=== PATIENT | male | born 1985 ===

== ENCOUNTER → 2019-11-17 | Outpatient (CLI) | payer OTHER ==
[~2019-11-17] MED LIST: GABA800T PO; MELO15TA6 PO; METH-38 PO
--- NOTE | 2019-11-17 10:49 | PAIN ---
DATE OF SERVICE: 11/17/2019 INITIAL CONSULTATION FOR PAIN CLINIC CHIEF COMPLAINT: Low back and left lower extremity pain. HISTORY OF PRESENT ILLNESS: This is a 34-year-old male who presents with history of pain in the low back, left lower extremity since about 04/2019 or 05/2019. The patient reports it started suddenly. He was playing soccer and then had some significant pain in the leg on the left side, better after about a day and then he was doing some weightlifting with leg presses and the next day it was excruciating pain in the posterior gluteus, posterolateral thigh, lateral anterior thigh, anteromedial thigh and into the lower leg and ankle. The patient reports it is generally just now into the side of the leg, anterior thigh into the left ankle rarely, but mostly up above the knee at this point. The patient reports no new motor or sensory deficits, no new bowel or bladder incontinence. The patient reports it is a stabbing, shooting pain, intermittent in intensity, worse with walking, standing, changing positions, better with sitting or lying down, generally does not awaken him from sleep at night. It does affect his ability to walk; however, significant fatigue in the left lower extremity. The patient rates his disability rating from 0-10, 10 being the worst, is a 7 with family home responsibilities and social activity, 10 with recreation, 9 with occupation, 3 with self-care activities. The patient has tried Neurontin, Mobic, Robaxin and also Vicodin, none of which have really decreased the pain significantly. The Neurontin and Mobic seems to help mildly. The patient has had physical therapy from April, May until August which helped the pain decrease in his back, but not in the leg. The patient reports he is exercising currently, doing stretching mostly which he has learnt from Physical Therapy, but it is not decreasing the pain significantly. PAST MEDICAL HISTORY: Significant for gastroesophageal reflux. Otherwise, the patient has been in fairly good health. PREVIOUS SURGERY: Include right shoulder surgery in 2009, hernia repair in 1986, eye surgery in 2014 and umbilical hernia in 2018. CURRENT MEDICATIONS: Include meloxicam, gabapentin and Robaxin. ALLERGIES: THE PATIENT IS ALLERGIC TO VICODIN. FAMILY HISTORY: Significant for no major medical problems or conditions that he lists. SOCIAL HISTORY: The patient does not drink alcohol, does not smoke, does not use any illegal, illicit or recreational drugs. He is . He is currently active and is in custody. REVIEW OF SYSTEMS: The patient's review of systems is positive for those items mentioned in history of present illness. All systems reviewed and otherwise negative. It is complete, full and well documented on the patient's chart. PHYSICAL EXAMINATION: VITAL SIGNS: The patient's blood pressure is 123/90, pulse 87, respirations 18, temperature 97.8 degrees Fahrenheit, height is 5 feet 8 inches, weight is 207 pounds. GENERAL: The patient is awake, alert, oriented, appropriate and very pleasant demeanor. HEENT: Head shows normocephalic, atraumatic. Extraocular movements are intact and symmetrical. Oral cavity shows mucous membranes moist and pink. Dentition is intact. NECK: Shows anterior throat supple without palpable lymphadenopathy noted. Swallow reflex symmetrical. CHEST: Normal on inspection. Breath sounds clear to auscultation bilaterally. HEART: Shows S1, S2 clear. No murmurs auscultated. ABDOMEN: Soft, nontender, nondistended. No palpable organomegaly is noted. No rebound or guarding demonstrated. BACK: Shows spine grossly in the midline. Normal appearing cervical lordotic curvature, thoracic kyphotic curvature and lumbar lordotic curvature. Lumbar paraspinous muscle shows symmetrical on inspection, on palpation shows some moderate tenderness diffusely bilaterally, but only diffusely without significant radiation. The patient has good rotational motion of lumbar spine, both laterally as well as extension and flexion without significant difficulty. No tenderness over the sacrum and sacroiliac regions or the spinous processes with direct palpation. EXTREMITIES: The patient's lower extremities show deep tendon reflexes 2+ in the patellar, 1+ tendo-calcaneus tendons. Motor exam is strong with 5/5 dorsiflexion, extension on the right and 4/5 on the left. Quadriceps and hamstring flexion likewise is 4/5 left, 5/5 on the right. Peripheral pulses are 1+ posterior tibia. No peripheral edema is noted bilaterally. The patient's straight leg raise noted to be mildly positive on the left at about 40 degrees, decreased with knee flexion, right side is negative. Gaenslen's and Jun's maneuvers are negative bilaterally. Lower extremities are warm and dry to touch, equal in color and appearance. The patient is able to stand, stand on his toes without significant difficulty or loss of balance, does walk with an antalgic gait favoring the left lower extremity, but again not using any assistive devices to ambulate. SKIN: Shows warm and dry, good turgor. No edema. No sores, rashes or bruising throughout. IMPRESSION: 1. This is a 34-year-old male with approximately 7-month history of low back pain, left lower extremity pain in a radicular fashion. 2. MRI scan of lumbar spine as noted. 3. Previous physical therapy without significant improvement. PLAN: Options were discussed with the patient including conservative medical management, continued therapies as well as interventional techniques. He would like to pursue interventional techniques. We discussed a lumbar epidural steroid injection using description as well as anatomical models to describe the procedure. The patient will wait for preauthorization with his insurance provider, have him return once authorization is obtained. We will plan on lumbar epidural steroid injection at that time for his clinical left L4-L5 radiculopathy with translaminar approach at the L4-L5 level. LAURO HAYNES MD DR: ERMA/michelle JOB#: [id number] / [id number]
== END | disposition home or self-care (01) ==
LOC: PNCL 07:22 → EEVIPCON 08:00
PROVIDERS: ATTEND Anesthesiology
DX: M54.5 Low back pain (principal); M79.605 Pain in left leg; K21.9 Gastro-esophageal reflux disease without esophagitis; Z88.8 Allergy status to other drugs, medicaments and biological substances
CPT/HCPCS: G0463

== ENCOUNTER → 2020-08-16 | Outpatient (CLI) | payer OTHER ==
[~2020-08-16] MED LIST changes: +GABA600T PO; +GABA600T7 PO; +IOHEXOL 180 MG/ML 10 ML VIAL. ONE; +OMEG1CAP27 PO; +OMEP20TA63 PO; +PIRO20CA PO; +elavil; +methylPREDNISolone ACETATE 40 MG/ML VIAL. ONE; +methylPREDNISolone ACETATE 80 MG/ML VIAL. ONE
--- NOTE | 2020-08-16 08:24 | PDOC ---
Progress Note - Pain Clinic Date of Service: DOS: DATE: 08/16/20 TIME: 08:21 Diagnosis: Dx: Lumbar radiculopathy with lumbar degenerative disc disease History or Present Illness: HPI: 35-year-old male returns follow-up status post initial evaluation last seen November 17, 2019 with pain low back and left lower extremity patient returns now reports this is unchanged is not any treatment for it and reports the pain is still radiating from the low back into the posterior gluteus posterior lateral thigh lateral anterior thigh anteromedial thigh and posterior calf on the left side as it was to the level of the ankle. Patient describes as aching sharp and dull alternating shooting pain left leg stabbing in the back can be constant and radiating can be severe as well. Patient reports awakening from sleep about once a night he is taking some medication for sleep which helps as well. Patient reports no new motor or sensory deficits no new bowel or bladder incontinence rates his pain is a 7 on scale 10 is worse over the past week 5 on average 4 to sleep and is a 5 today. Patient's old MRI scan was reviewed with him today as well. Physical Exam: VS: Blood pressure is 143/99 pulse 88 respirations 16 temperature 97.7 this Fahrenheit weight is 222 pounds PE: PHYSICAL EXAMINATION: GENERAL: The patient is awake, alert, oriented, appropriate, very pleasant dem eanor HEENT: Shows normocephalic, atraumatic. Extraocular movements are intact and symmetrical. Oral cavity: Mucous membranes moist and pink. Dentition is intact. NECK: Shows anterior throat supple without palpable lymphadenopathy noted. Swallow reflex symmetrical. CHEST: Shows normal on inspection. Breath sounds are clear bilaterally, no rales rhonchi wheezes auscultated. HEART: Shows S1, S2 clear. No murmurs auscultated. ABDOMEN: Soft, nontender, nondistended. No palpable organomegaly is noted. No rebound or guarding demonstrated. BACK: Shows spine grossly in the midline. Normal-appearing cervical lordotic curvature. There is slightly increased thoracic kyphosis, some minor flattening of the lumbar lordotic curvature. Lumbar paraspinous muscles show symmetrical on inspection, on palpation shows some moderate tenderness diffusely throughout the upper, middle and lower distribution of the paraspinous muscles bilaterally, but without specific trigger points, without radiation of pain. The patient has good rotational motion of the lumbar spine, both laterally as well as extension and flexion without significant difficulty. No tenderness over the spinous processes, sacrum or sacroiliac regions. EXTREMITIES: Lower extremities show deep tendon reflexes 2+ in the patellar and tendo calcaneus tendons. Motor exam is 5 on a scale of 5 with right dorsiflexion, extension, quadriceps and hamstring flexion and 4/5 on the left. Peripheral pulses are 1+ posterior tibial. No peripheral edema is noted bilaterally. Lower extremities are warm and dry to touch, equal in color and appearance. . SKIN: Shows warm and dry, good turgor. No edema. No sores, rashes or bruising throughout. Procedure: Procedure: Options were discussed with the patient. Patient chart was reviewed his his current medication regimen updated current review of systems updated today as well. We will proceed with a lumbar epidural steroid injection today with fluoroscopic guidance. Risks were discussed including but not limited to: Bleeding, infection, possibility of epidural hematoma and subsequent neurological compromise, dural puncture, headaches, spinal cord and/or nerve damage, side effects of steroid medication, and poor results regarding pain control. Patient understands wished to proceed. Patient will return to the clinic in approximate 2 weeks for follow-up was counseled as to return appointment activity level and side effects to be aware of. Medication Injected: Med Injected: Procedure is lumbar epidural steroid injection under local anesthetic using sterile prep and drape at the L4-5 level using C-arm fluoroscopic guidance in both AP and lateral views medications injected is 120 mg Depo-Medrol + 10 mL preservative-free normal saline and 2 mL contrast- condition at discharge is stable patient tolerated procedure well had no complications. Condition at Discharge: Condition at Discharge: Condition at discharge stable, patient tolerated procedure well and had no complications. LAURO HAYNES MD Aug 16, 2020 08:24
== END | disposition home or self-care (01) ==
LOC: EEVIPCON 07-25 08:00 → PNCL 07:46
PROVIDERS: ATTEND Anesthesiology
DX: M51.16 Intervertebral disc disorders with radiculopathy, lumbar region (principal); Z79.899 Other long term (current) drug therapy; Z88.8 Allergy status to other drugs, medicaments and biological substances
CPT/HCPCS: 62323; J1030; J1040; Q9965